=== PATIENT | male | born 1980 | race Caucasian/White ===

== ENCOUNTER 2024-07-11 16:05 | Emergency (ER) | payer MEDICAID ==
[~2024-07-11] VITALS: Ht 188 cm; Wt 114.0 kg
[2024-07-11 16:09] VITALS: O2SAT 99
[2024-07-11] MEDS ORDERED: HYDROCODONE/ACETAMINOPHEN 5/325MG TABLET PO STA (16:16)
[2024-07-11] MEDS ORDERED: CYCL10TA21 MT (17:27)
[2024-07-11] MEDS ORDERED: IBUP-2029 MT (17:27)
[2024-07-11 17:57] VITALS: BP 139/87; PULSE 96; RESP 18; TEMP 36.89184; O2SAT 96
== END 2024-07-11 17:58 | disposition home or self-care (01) ==
LOC: ER 16:05
DX: S10.93XA Contusion of unspecified part of neck, initial encounter (principal); S80.12XA Contusion of left lower leg, initial encounter; S09.90XA Unspecified injury of head, initial encounter; V49.9XXA Car occupant (driver) (passenger) injured in unspecified traffic accident, initial encounter; Y93.89 Activity, other specified; Y92.89 Other specified places as the place of occurrence of the external cause; Y99.8 Other external cause status
CPT/HCPCS: 73560; 73610; 99284